=== PATIENT | female | born 1960 | race Caucasian/White ===

== ENCOUNTER 2017-10-16 12:31 | Day surgery (SDC) | payer OTHER ==
[2017-10-16] MEDS ORDERED: MIDAZOLAM 1 MG/ML 2 ML INJ ×2 (16:17)
[2017-10-16] MEDS ORDERED: MEPERIDINE 50 MG INJ (16:17)
[2017-10-16] MEDS ORDERED: FENTAnyl 50 MCG/ML VIAL (16:17)
== END 2017-10-16 16:47 | disposition home or self-care (01) ==
LOC: GIL 12:31
DX: Z12.11 Encounter for screening for malignant neoplasm of colon (principal); Z80.0 Family history of malignant neoplasm of digestive organs; E11.9 Type 2 diabetes mellitus without complications; I10 Essential (primary) hypertension; E78.5 Hyperlipidemia, unspecified
CPT/HCPCS: 45378; 82962